=== PATIENT | female | born 1970 ===

== ENCOUNTER 2018-04-11 07:11 | Emergency (ER) | payer OTHER ==
[~2018-04-11] VITALS: Ht 160 cm; Wt 64.9 kg
[~2018-04-11 07:11] MED LIST: AVONEX30 MCG/0.5 IM
[2018-04-11] MEDS ORDERED: GILENYA0.5 MG (07:24)
[2018-04-11] MEDS ORDERED: KETO10TA2 PO (11:27)
== END 2018-04-11 11:44 | disposition home or self-care (01) ==
LOC: ER 07:11
DX: D25.9 Leiomyoma of uterus, unspecified (principal); R10.2 Pelvic and perineal pain

== ENCOUNTER 2018-04-11 17:11 | Emergency (ER) | payer OTHER ==
[~2018-04-11] VITALS: Ht 160 cm; Wt 67.1 kg
[~2018-04-11 17:11] MED LIST changes: +GILENYA0.5 MG; +KETO10TA2 PO
== END 2018-04-12 00:10 | disposition home or self-care (01) ==
LOC: ER 17:11
DX: N20.0 Calculus of kidney (principal); R10.31 Right lower quadrant pain